=== PATIENT | female | born 1955 | race Caucasian/White ===

== ENCOUNTER 2022-05-02 09:06 | Outpatient (CLI) | payer MEDICARE | END 2022-05-02 09:07 | disposition home or self-care (01) | LOC: CSHCT 09:06 | PROVIDERS: ATTEND Neurological Surgery | DX: M43.06 Spondylolysis, lumbar region (principal); M43.17 Spondylolisthesis, lumbosacral region; M48.07 Spinal stenosis, lumbosacral region | CPT/HCPCS: 72131 ==

== ENCOUNTER 2025-05-14 13:17 | Outpatient (CLI) | payer MEDICARE | END 2025-05-14 13:18 | disposition home or self-care (01) | LOC: CSHMAMMO 13:17 | PROVIDERS: ATTEND Family Medicine | DX: Z12.31 Encounter for screening mammogram for malignant neoplasm of breast (principal); Z80.3 Family history of malignant neoplasm of breast | CPT/HCPCS: 77063; 77067 ==